=== PATIENT | female | born 1960 | race Caucasian/White ===

== ENCOUNTER 2017-02-21 16:15 | Emergency (ER) | payer MEDICAID ==
[~2017-02-21 16:15] MED LIST: NITR-48 PO; OMEP20CA5 PO
[2017-02-21] MEDS ORDERED: traMADol HCL 50 MG TAB PO ONE (19:00)
[2017-02-21 19:12] VITALS: BP 138/85
== END 2017-02-21 20:10 | disposition home or self-care (01) ==
LOC: ER 16:22
DX: M79.605 Pain in left leg (principal); M79.89 Other specified soft tissue disorders; Z85.3 Personal history of malignant neoplasm of breast; Z88.0 Allergy status to penicillin; Z77.22 Contact with and (suspected) exposure to environmental tobacco smoke (acute) (chronic); Z86.711 Personal history of pulmonary embolism; Z87.440 Personal history of urinary (tract) infections; E07.9 Disorder of thyroid, unspecified; Z86.718 Personal history of other venous thrombosis and embolism; Z88.6 Allergy status to analgesic agent
CPT/HCPCS: 93971

== ENCOUNTER 2017-10-25 08:35 | Inpatient (IN) | payer MEDICAID ==
[~2017-10-25] VITALS: Ht 162.6 cm; Wt 123.3 kg
[~2017-10-25 08:35] MED LIST changes: +DOXY-216 PO; -NITR-48 PO; -OMEP20CA5 PO; +PROM25TA5 PO
[2017-10-25 08:59] LABS: Basophils # (auto) 0.1 uL; Basophils % (auto) 1.1 % (0.0-2.0); Eosinophils # (auto) 0.1 uL; Eosinophils % (auto) 2.6 % (0.0-7.0); Hematocrit 39.5 % (36.0-46.0); Hemoglobin 13.1 g/dL (12.2-16.2); Lymphocytes # (auto) 1.2 uL; Lymphocytes % (auto) 24.4 % (10.0-50.0); Mean Corpuscular Hemoglobin 31.5 pg (28.0-32.0); Mean Corpuscular Hgb Conc. 33.2 g/dL (32.0-36.0); Mean Corpuscular Volume 94.8 fL (80.0-100.0); Monocytes # (auto) 0.3 uL; Monocytes % (auto) 6.7 % (0.0-12.0); Neutrophils # (auto) 3.1 uL; Neutrophils % (auto) 65.2 % (37.0-80.0); Platelet Count (auto) 257 10^3/uL (140-450); Red Blood Cells 4.16 10^6/uL (4.0-5.20); Red Cell Distribution Width 14.3 % (11.8-14.3); White Blood Cell 4.8 10^3/uL (4.4-10.8)
[2017-10-25 09:46] LABS: Albumin 3.9 g/dL (3.4-5.0); BUN/Creatinine Ratio 14.1; Bilirubin, Total 0.9 mg/dL (0.2-1.0); Calcium 8.9 mg/dL (8.5-10.1); Potassium 4.1 mmol/L (3.5-5.1); Total Protein 7.7 g/dL (6.4-8.2)
[2017-10-25 10:18] LABS: Urine Blood Negative /uL (Negative)
[2017-10-25 10:19] LABS: Urine Bacteria FEW /hpf (None Seen)
[2017-10-25] MEDS ORDERED: SODIUM CHLORIDE 0.9% 1,000 ML IVB ONE (10:42)
[2017-10-25] MEDS ORDERED: HYDROmorphone HCL 2 MG/ML VL IV ONE ×2 (10:45→13:15)
[2017-10-25] MEDS ORDERED: ONDANSETRON HCL 4 MG/2 ML VIAL IV ONE (10:45)
[2017-10-25 11:14] LABS: Amylase 48 U/L (25-115); Lipase 184 U/L (73-393)
[2017-10-25] MEDS ORDERED: IOHEXOL 350 MG/ML 100ML IJ ONE (14:41)
[2017-10-25] MEDS ORDERED: KETOROLAC TROMETH 30 MG/ML 1ML VIAL IV ONE (14:45)
[2017-10-25] MEDS ORDERED: ENOXAPARIN SOD 120 MG/0.8 ML SYRINGE SC ONE (14:45)
[2017-10-25] MEDS ORDERED: HYDROcodone-ACET 5/325MG TAB PO PRN (14:45)
[2017-10-25] MEDS ORDERED: ONDANSETRON HCL 4 MG/2 ML VIAL IV PRN (14:45)
[2017-10-25] MEDS: PROMETHAZINE HCL 25 MG/ML 1ML IV PRN (16:19)
[2017-10-25] MEDS: HYDROmorphone HCL 2 MG/ML VL IV PRN (20:44)
[2017-10-25 21:00] VITALS: BP 155/95
[2017-10-25] MEDS ORDERED: ENOXAPARIN SOD 120 MG/0.8 ML SYRINGE SC SCH (22:00)
[2017-10-26 00:05] VITALS: BP 155/95
[2017-10-26] MEDS: HYDROmorphone HCL 2 MG/ML VL IV PRN ×4 (00:46→15:34)
[2017-10-26] MEDS: PROMETHAZINE HCL 25 MG/ML 1ML IV PRN ×4 (00:55→15:34)
[2017-10-26 05:00] VITALS: BP 139/88
[2017-10-26] MEDS ORDERED: ENOXAPARIN SOD 120 MG/0.8 ML SYRINGE SC SCH (06:00)
[2017-10-26 08:34] VITALS: BP 125/79
[2017-10-26] MEDS: PANTOPRAZOLE 40 MG TAB PO SCH (09:55)
[2017-10-26 13:06] VITALS: BP 123/55
[2017-10-26] MEDS ORDERED: cefTRIAXone 1GM/10ml IVPUSH 10 ML IV ONE (14:15)
[2017-10-26] MEDS ORDERED: AZITHROMYCIN 250 MG TAB PO ONE (14:15)
[2017-10-26 16:32] VITALS: BP 130/67
[2017-10-26] MEDS: KETOROLAC TROMETH 30 MG/ML 1ML VIAL IV SCH ×2 (18:19→23:51)
[2017-10-26 22:00] VITALS: BP 112/69
[2017-10-27 05:00] VITALS: BP 130/70
[2017-10-27] MEDS: KETOROLAC TROMETH 30 MG/ML 1ML VIAL IV SCH ×2 (05:53→11:59)
[2017-10-27 06:27] LABS: Basophils # (auto) 0 uL; Basophils % (auto) 0.7 % (0.0-2.0); Eosinophils # (auto) 0.1 uL; Eosinophils % (auto) 3.1 % (0.0-7.0); Hematocrit 34.4 % (36.0-46.0); Hemoglobin 11.6 g/dL (12.2-16.2); Lymphocytes % (auto) 29.5 % (10.0-50.0); Mean Corpuscular Hemoglobin 32.1 pg (28.0-32.0); Mean Corpuscular Hgb Conc. 33.8 g/dL (32.0-36.0); Mean Corpuscular Volume 95.1 fL (80.0-100.0); Monocytes # (auto) 0.3 uL; Monocytes % (auto) 10.2 % (0.0-12.0); Neutrophils # (auto) 1.9 uL; Neutrophils % (auto) 56.5 % (37.0-80.0); Nucleated Red Blood Cells % 0.1 %; Platelet Count (auto) 173 10^3/uL (140-450); Red Blood Cells 3.62 10^6/uL (4.0-5.20); Red Cell Distribution Width 14.2 % (11.8-14.3); White Blood Cell 3.4 10^3/uL (4.4-10.8)
[2017-10-27 06:48] LABS: BUN/Creatinine Ratio 21.2; Potassium 3.9 mmol/L (3.5-5.1)
[2017-10-27] MEDS ORDERED: cefTRIAXone 1GM/10ml IVPUSH 10 ML IV SCH (09:00)
[2017-10-27] MEDS: PANTOPRAZOLE 40 MG TAB PO SCH (09:05)
[2017-10-27 09:25] VITALS: BP 127/68
[2017-10-27] MEDS ORDERED: AZITHROMYCIN 250 MG TAB PO SCH (10:00)
[2017-10-27 13:00] VITALS: BP 116/69
[2017-10-27 17:00] VITALS: BP 122/85
== END 2017-10-27 17:05 | disposition home or self-care (01) | DRG 392 ==
LOC: ER 08:35 → OVERFLOW 08:36 → WEST WING 20:44
PROVIDERS: ADMIT Internal Medicine; ATTEND Internal Medicine
DX: R10.9 Unspecified abdominal pain (principal); E66.01 Morbid (severe) obesity due to excess calories; Z68.42 Body mass index [BMI] 45.0-49.9, adult; Z77.22 Contact with and (suspected) exposure to environmental tobacco smoke (acute) (chronic); Z82.49 Family history of ischemic heart disease and other diseases of the circulatory system; Z85.3 Personal history of malignant neoplasm of breast; Z86.718 Personal history of other venous thrombosis and embolism; Z90.49 Acquired absence of other specified parts of digestive tract; Z90.710 Acquired absence of both cervix and uterus; Z88.0 Allergy status to penicillin; Z88.5 Allergy status to narcotic agent; Z79.899 Other long term (current) drug therapy; Z98.51 Tubal ligation status; Z90.89 Acquired absence of other organs
CPT/HCPCS: 36415; 71046; 71101; 71275; 74176; 80048; 80053; 81001; 82150; 83690; 85025; 85379; 96361; 96372; 96374; 96375; 96376; J1885; J2405

== ENCOUNTER 2018-02-18 15:11 | Observation (INO) | payer MEDICAID ==
[~2018-02-18] VITALS: Ht 162.6 cm; Wt 125.2 kg
[2018-02-18 16:12] LABS: Basophils # (auto) 0 uL; Basophils % (auto) 0.5 % (0.0-2.0); Eosinophils # (auto) 0.2 uL; Eosinophils % (auto) 3.9 % (0.0-7.0); Hematocrit 43.7 % (36.0-46.0); Hemoglobin 14.5 g/dL (12.2-16.2); Lymphocytes # (auto) 1.3 uL; Lymphocytes % (auto) 23.7 % (10.0-50.0); Mean Corpuscular Hemoglobin 32.3 pg (28.0-32.0); Mean Corpuscular Hgb Conc. 33.2 g/dL (32.0-36.0); Mean Corpuscular Volume 97.2 fL (80.0-100.0); Monocytes # (auto) 0.4 uL; Monocytes % (auto) 7.1 % (0.0-12.0); Neutrophils # (auto) 3.6 uL; Neutrophils % (auto) 64.8 % (37.0-80.0); Nucleated Red Blood Cells % 0.1 %; Platelet Count (auto) 232 10^3/uL (140-450); Red Blood Cells 4.49 10^6/uL (4.0-5.20); White Blood Cell 5.5 10^3/uL (4.4-10.8)
[2018-02-18 16:33] LABS: Albumin 4.2 g/dL (3.4-5.0); BUN/Creatinine Ratio 11.7; Bilirubin, Total 0.4 mg/dL (0.2-1.0); Calcium 9.4 mg/dL (8.5-10.1); Potassium 3.6 mmol/L (3.5-5.1); Total Protein 8.4 g/dL (6.4-8.2)
[2018-02-18] MEDS ORDERED: HYDROcodone-ACET 10/325MG TAB PO ONE (18:30)
[2018-02-18] MEDS ORDERED: NALBUPHINE HCL 10 MG/1ml INJECTION IV ONE (18:30)
[2018-02-18] MEDS ORDERED: ONDANSETRON HCL 4 MG/2 ML VIAL IV ONE ×2 (18:30→22:30)
[2018-02-18 20:53] LABS: INR 0.94 (0.9-1.15); Prothrombin Time 10.2 sec (9.37-12.3)
[2018-02-18] MEDS ORDERED: IODIXANOL 320MG/ML 100ML BTL IV ONE (23:11)
[2018-02-19] MEDS ORDERED: IOHEXOL 350 MG/ML 100ML IJ ONE (09:27)
[2018-02-19] MEDS ORDERED: IBUPROFEN 800 MG TAB PO ONE (10:00)
[2018-02-19 11:58] VITALS: BP 123/70
== END 2018-02-19 12:46 | disposition home or self-care (01) | DRG 351 ==
LOC: ER 15:18 → OVERFLOW 20:29 → ER 02-19 12:25
PROVIDERS: ADMIT Family Medicine; ATTEND Family Medicine
DX: M79.601 Pain in right arm (principal); I73.00 Raynaud's syndrome without gangrene; Z86.711 Personal history of pulmonary embolism; Z86.718 Personal history of other venous thrombosis and embolism; Z77.22 Contact with and (suspected) exposure to environmental tobacco smoke (acute) (chronic); Z82.49 Family history of ischemic heart disease and other diseases of the circulatory system; Z90.710 Acquired absence of both cervix and uterus
CPT/HCPCS: 36415; 71046; 73201; 80053; 85025; 85379; 85610; 85730; 93005; 93930; 96374; 96376; 99285; G0378; J2405; Q9967

== ENCOUNTER 2018-06-13 11:39 | Emergency (ER) | payer MEDICAID ==
[~2018-06-13] VITALS: Ht 162.6 cm; Wt 125.6 kg
[2018-06-13] MEDS ORDERED: PANTOPRAZOLE 40 MG/10 ML VIAL IV STA (12:07)
[2018-06-13] MEDS ORDERED: SODIUM CHLORIDE 0.9% 500 ML IVB ONE (12:07)
[2018-06-13] MEDS ORDERED: ONDANSETRON HCL 4 MG/2 ML VIAL IV ONE (12:15)
[2018-06-13] MEDS ORDERED: HYDROmorphone HCL 2 MG/ML VL IV ONE (12:15)
[2018-06-13 12:57] LABS: Basophils # (auto) 0 uL; Basophils % (auto) 0.8 % (0.0-2.0); Eosinophils # (auto) 0.2 uL; Eosinophils % (auto) 3.2 % (0.0-7.0); Hematocrit 41.9 % (36.0-46.0); Hemoglobin 14.3 g/dL (12.2-16.2); Lymphocytes # (auto) 1.1 uL; Lymphocytes % (auto) 18.5 % (10.0-50.0); Mean Corpuscular Hemoglobin 33.3 pg (28.0-32.0); Monocytes # (auto) 0.4 uL; Monocytes % (auto) 6.6 % (0.0-12.0); Neutrophils # (auto) 4.2 uL; Neutrophils % (auto) 70.9 % (37.0-80.0); Nucleated Red Blood Cells % 0.1 %; Platelet Count (auto) 242 10^3/uL (140-450); Red Blood Cells 4.28 10^6/uL (4.0-5.20); Red Cell Distribution Width 14.8 % (11.8-14.3); White Blood Cell 5.9 10^3/uL (4.4-10.8)
[2018-06-13 13:01] LABS: Urine Bacteria NONE SEEN /hpf (None Seen); Urine Blood Negative /uL (Negative); Urine Mucus FEW (None Seen); Urine Specific Gravity 1.012 (1.001-1.035); Urine WBC 2 /hpf (0 - 5)
[2018-06-13 13:18] LABS: Albumin 4.1 g/dL (3.4-5.0); BUN/Creatinine Ratio 15.4; Bilirubin, Total 0.9 mg/dL (0.2-1.0); Calcium 8.9 mg/dL (8.5-10.1); Potassium 4.1 mmol/L (3.5-5.1); Total Protein 8.2 g/dL (6.4-8.2)
[2018-06-13 13:21] LABS: Amylase 46 U/L (25-115); Lipase 170 U/L (73-393); Magnesium 2.4 mg/dL (1.6-2.6)
[2018-06-13 19:48] VITALS: BP 129/95
== END 2018-06-13 20:28 | disposition home or self-care (01) ==
LOC: ER 11:39
DX: R10.13 Epigastric pain (principal); R11.2 Nausea with vomiting, unspecified; E07.9 Disorder of thyroid, unspecified; Z88.0 Allergy status to penicillin; Z88.5 Allergy status to narcotic agent; Z86.711 Personal history of pulmonary embolism; Z77.22 Contact with and (suspected) exposure to environmental tobacco smoke (acute) (chronic)
CPT/HCPCS: 36415; 74176; 80053; 81001; 82150; 83690; 83735; 84484; 85025; 93005; 94761; 96361; 96374; 96375; 99285; C9113; J1170; J2405; J7040

== ENCOUNTER 2018-11-28 09:40 | Emergency (ER) | payer MEDICAID ==
[~2018-11-28] VITALS: Ht 162.6 cm; Wt 120.2 kg
[2018-11-28 10:13] LABS: Urine WBC None Seen /hpf (0 - 5)
[2018-11-28 10:21] LABS: Basophils # (auto) 0 uL; Basophils % (auto) 1.2 % (0.0-2.0); Eosinophils # (auto) 0.1 uL; Eosinophils % (auto) 3.5 % (0.0-7.0); Hemoglobin 14.8 g/dL (12.2-16.2); Lymphocytes # (auto) 1.2 uL; Mean Corpuscular Hemoglobin 32.6 pg (28.0-32.0); Mean Corpuscular Hgb Conc. 34.3 g/dL (32.0-36.0); Mean Corpuscular Volume 94.9 fL (80.0-100.0); Monocytes # (auto) 0.3 uL; Monocytes % (auto) 6.3 % (0.0-12.0); Neutrophils # (auto) 2.4 uL; Platelet Count (auto) 216 10^3/uL (140-450); Red Blood Cells 4.53 10^6/uL (4.0-5.20); Red Cell Distribution Width 13.9 % (11.8-14.3); White Blood Cell 4.1 10^3/uL (4.4-10.8)
[2018-11-28 10:28] LABS: Urine Bacteria NONE SEEN /hpf (None Seen); Urine Blood Negative /uL (Negative); Urine Specific Gravity 1.012 (1.001-1.035)
[2018-11-28 10:39] LABS: Albumin 3.9 g/dL (3.4-5.0); BUN/Creatinine Ratio 17.3; Calcium 8.5 mg/dL (8.5-10.1)
[2018-11-28 10:41] LABS: Bilirubin, Total 0.7 mg/dL (0.2-1.0); Total Protein 7.9 g/dL (6.4-8.2)
[2018-11-28 13:54] VITALS: BP 150/80
== END 2018-11-28 13:57 | disposition home or self-care (01) ==
LOC: ER 09:40
DX: M79.604 Pain in right leg (principal); M79.10 Myalgia, unspecified site; Z87.440 Personal history of urinary (tract) infections; Z86.711 Personal history of pulmonary embolism; Z86.73 Personal history of transient ischemic attack (TIA), and cerebral infarction without residual deficits; Z88.0 Allergy status to penicillin; Z88.5 Allergy status to narcotic agent
CPT/HCPCS: 36415; 71046; 80053; 81001; 85025; 93005; 93971

== ENCOUNTER 2019-09-20 15:12 | Emergency (ER) | payer MEDICAID ==
[~2019-09-20] VITALS: Ht 162.6 cm; Wt 113.4 kg
[2019-09-20 16:09] LABS: Basophils # (auto) 0 uL; Basophils % (auto) 0.9 % (0.0-2.0); Eosinophils # (auto) 0.2 uL; Hematocrit 40.7 % (36.0-46.0); Hemoglobin 13.7 g/dL (12.2-16.2); Lymphocytes # (auto) 1.2 uL; Lymphocytes % (auto) 23.8 % (10.0-50.0); Mean Corpuscular Hemoglobin 32.5 pg (28.0-32.0); Mean Corpuscular Hgb Conc. 33.7 g/dL (32.0-36.0); Mean Corpuscular Volume 96.6 fL (80.0-100.0); Monocytes # (auto) 0.4 uL; Neutrophils # (auto) 3.2 uL; Neutrophils % (auto) 64.3 % (37.0-80.0); Platelet Count (auto) 211 10^3/uL (140-450); Red Blood Cells 4.21 10^6/uL (4.0-5.20); Red Cell Distribution Width 13.9 % (11.8-14.3)
[2019-09-20 16:19] LABS: Alanine Aminotransferase 27 U/L (13-56); Albumin 3.7 g/dL (3.4-5.0); Anion Gap 8 (5-15); Aspartate Aminotransferase 20 U/L (15-37); BUN/Creatinine Ratio 20.6; Blood Urea Nitrogen 22 mg/dL (7-18); Calcium 8.5 mg/dL (8.5-10.1); Carbon Dioxide 26 mmol/L (21-32); Chloride 107 mmol/L (98-107); GFR African American 68 mL/min; GFR Non-African American 56 mL/min; Glucose 94 mg/dL (74-106); Potassium 3.4 mmol/L (3.5-5.1); Sodium 141 mmol/L (136-145)
[2019-09-20 16:23] LABS: Alkaline Phosphatase 88 U/L (45-117); Bilirubin, Total 0.5 mg/dL (0.2-1.0); Total Protein 7.6 g/dL (6.4-8.2)
[2019-09-20 20:31] LABS: INR 0.98 (0.9-1.15); Partial Thromboplastin Time 25.2 sec (23.64-32.05)
[2019-09-20 21:08] LABS: Urine Bacteria NONE SEEN /hpf (None Seen); Urine Blood Negative /uL (Negative); Urine Mucus FEW (None Seen); Urine Specific Gravity 1.014 (1.001-1.035); Urine WBC 58 /hpf (0 - 5)
[2019-09-20] MEDS ORDERED: MORPHINE SULFATE 4 MG/ML SYR/VIAL IV ONE (21:45)
[2019-09-20] MEDS ORDERED: ONDANSETRON HCL 4 MG/2 ML VIAL IV ONE (21:45)
[2019-09-20] MEDS ORDERED: HYDROmorphone HCL 2 MG/ML VL IV ONE (22:15)
[2019-09-20 23:17] VITALS: BP 133/77
== END 2019-09-20 23:30 | disposition home or self-care (01) ==
LOC: ER 15:37
DX: F41.9 Anxiety disorder, unspecified (principal); N39.0 Urinary tract infection, site not specified; E07.9 Disorder of thyroid, unspecified
CPT/HCPCS: 36415; 71046; 80053; 81001; 83880; 84443; 84484; 85025; 85379; 85610; 85730; 93971; 96374; 96375; 99284; J1170; J2270; J2405

== ENCOUNTER 2020-05-31 13:24 | Inpatient (IN) | payer MEDICAID ==
[~2020-05-31] VITALS: Ht 162.6 cm; Wt 116.7 kg
[2020-05-31 13:52] LABS: Basophils # (auto) 0.1 10 ^3/uL (0-0.2); Basophils % (auto) 1.3 % (0.0-2.0); Eosinophils # (auto) 0.1 10 ^3/uL (0-0.8); Eosinophils % (auto) 2.2 % (0.0-7.0); Hematocrit 38.5 % (36.0-46.0); Hemoglobin 12.7 g/dL (12.2-16.2); Lymphocytes # (auto) 1.3 10 ^3/uL (0.4-5.4); Lymphocytes % (auto) 29.7 % (10.0-50.0); Mean Corpuscular Hemoglobin 31.8 pg (28.0-32.0); Mean Corpuscular Hgb Conc. 33.1 g/dL (32.0-36.0); Mean Corpuscular Volume 96.1 fL (80.0-100.0); Monocytes # (auto) 0.2 10 ^3/uL (0-1.3); Monocytes % (auto) 5.5 % (0.0-12.0); Neutrophils # (auto) 2.7 10 ^3/uL (1.6-8.6); Neutrophils % (auto) 61.3 % (37.0-80.0); Nucleated Red Blood Cells % 0.1 %; Platelet Count (auto) 209 10^3/uL (140-450); Red Blood Cells 4.01 10^6/uL (4.0-5.20); Red Cell Distribution Width 13.8 % (11.8-14.3); White Blood Cell 4.4 10^3/uL (4.4-10.8)
[2020-05-31 14:06] LABS: Albumin 3.6 g/dL (3.4-5.0); Anion Gap 4 (5-15); Blood Urea Nitrogen 13 mg/dL (7-18); Calcium 8.7 mg/dL (8.5-10.1); Carbon Dioxide 25 mmol/L (21-32); Chloride 110 mmol/L (98-107); Glucose 89 mg/dL (74-106); Potassium 3.7 mmol/L (3.5-5.1); Sodium 139 mmol/L (136-145)
[2020-05-31 14:08] LABS: Alanine Aminotransferase 22 U/L (13-56); Aspartate Aminotransferase 14 U/L (15-37); BUN/Creatinine Ratio 13.1; GFR African American 74 mL/min; GFR Non-African American 61 mL/min
[2020-05-31 14:12] LABS: Alkaline Phosphatase 68 U/L (45-117); Bilirubin, Total 0.9 mg/dL (0.2-1.0); Total Protein 7.2 g/dL (6.4-8.2)
[2020-05-31] MEDS ORDERED: SODIUM CHLORIDE 0.9% 1,000 ML IV ONE (15:28)
[2020-05-31] MEDS ORDERED: ASPirin 81 mg TAB PO ONE (15:30)
[2020-05-31 17:02] LABS: INR 0.97 (0.9-1.15); Partial Thromboplastin Time 25.9 sec (23.0-31.2)
[2020-05-31] MEDS ORDERED: IOHEXOL 350 MG/ML 100ML IJ ONE ×2 (19:08→22:08)
[2020-05-31] MEDS ORDERED: NITROGLYCERIN 0.4 MG SL TAB SL PRN (21:00)
[2020-05-31] MEDS: APIXABAN 5 MG TAB PO SCH (22:11)
[2020-05-31 22:16] LABS: Urine Bacteria FEW /hpf (None Seen); Urine Blood Negative /uL (Negative); Urine Mucus FEW (None Seen); Urine Specific Gravity 1.015 (1.001-1.035); Urine WBC 6 /hpf (0 - 5)
--- NOTE | 2020-05-31 22:33 | NUR ---
Telemetry admit from ER SARDISMILAGROS admitted to Telemetry unit after SBAR received. Patient oriented to Naveen Lehman, primary RN, unit, room, bed, and unit policies regarding patient care and visiting hours. Patient now on continuous telemetry monitoring, tele box # 34 and telemetry reading on arrival to unit is Sinus jia. Patient placed on bedside oxygen at 1.5 L/min, weighed by bedscale and encouraged to call if they need something. Pain management discussed with patient. All questions and concerns addressed, patient verbalized understanding.
[2020-05-31 23:11] VITALS: BP 145/65
[2020-05-31] MEDS: HYDROcodone-ACET 5/325MG TAB PO PRN (23:23)
[2020-05-31 23:43] VITALS: BP 145/65
[2020-06-01] MEDS ORDERED: ESOM40CA39 PO (00:07)
[2020-06-01] MEDS ORDERED: LEV50T PO (00:07)
[2020-06-01] MEDS ORDERED: TRAM50TA2 PO (00:07)
[2020-06-01] MEDS ORDERED: ATOR20TA PO (00:07)
[2020-06-01] MEDS: ONDANSETRON HCL 4 MG/2 ML VIAL IV PRN (04:53)
[2020-06-01] MEDS: HYDROcodone-ACET 5/325MG TAB PO PRN ×2 (04:53→11:38)
[2020-06-01 05:00] VITALS: BP 115/68
--- NOTE | 2020-06-01 07:30 | NUR ---
Opening Shift Note Assumed care of patient, awake and alert. No S/S of distress/SOB or pain reported at this time. Instructed on POC and to call for assist PRN, call light within reach, bed alarm activated, will continue to monitor for changes Q1hr and PRN.
[2020-06-01 08:00] VITALS: BP 100/57
[2020-06-01 09:00] VITALS: BP 100/51
[2020-06-01] MEDS: APIXABAN 5 MG TAB PO SCH ×2 (09:41→22:03)
[2020-06-01 13:00] VITALS: BP_SYST 114; BP_SYST 125; BP_DIAS 68; BP_DIAS 71
[2020-06-01] MEDS ORDERED: LORazepam 0.5 MG TAB PO PRN (16:00)
[2020-06-01 17:00] VITALS: BP 114/68
--- NOTE | 2020-06-01 19:30 | NUR ---
Opening shift note Assumed care of patient from day RNCecy. Patient sitting up resting, A&Ox4, respirations even and non-labored with no s/s of distress at this time. Discussed patients POC and requested that the patient call for assistance before walking to the bathroom due to her medications and possible weakness. The patient verbalized understanding. Assisted patient to the restroom and back into bed without any complications. Bed alarm set at this time. Bed in the lowest locked position with 2 side rails up, call light within reach. will continue to monitor.
[2020-06-01 22:00] VITALS: BP 123/69
--- NOTE | 2020-06-02 01:02 | NUR ---
Rounding Patient sleeping. Respirations even and non-labored with no s/s of distress. Bed alarm on. Will continue to monitor.
[2020-06-02] MEDS: HYDROcodone-ACET 5/325MG TAB PO PRN ×2 (02:46→21:04)
[2020-06-02] MEDS: ONDANSETRON HCL 4 MG/2 ML VIAL IV PRN ×2 (02:46→21:04)
--- NOTE | 2020-06-02 02:55 | NUR ---
Pain Patient requesting pain medication for 5/10 pain and a headache. Administered [place] per EMAR. Will continue to monitor.
--- NOTE | 2020-06-02 03:30 | NUR ---
Pain reassessed Patient sleeping, respirations even and non-labored with no s/s of distress. will continue to monitor.
[2020-06-02] MEDS: LEVOTHYROXINE SODIUM 50 MCG TAB PO SCH (05:37)
--- NOTE | 2020-06-02 05:37 | NUR ---
Contacted by woodworking shop laborer Unable to do lab draw on the patient at this time. Will return to complete the draw at a later time.
[2020-06-02 05:42] VITALS: BP 123/69
--- NOTE | 2020-06-02 06:50 | NUR ---
Patient resting Respirations even and non-labored with no s/s of distress at this time.
[2020-06-02 08:00] VITALS: BP 125/74
[2020-06-02 08:53] VITALS: BP 125/74
--- NOTE | 2020-06-02 09:36 | NUR ---
AT BEDSIDE DR FRANCISCO AT BEDSIDE DISCUSSING POC, CONT CARE
[2020-06-02] MEDS: APIXABAN 5 MG TAB PO SCH (09:52)
[2020-06-02] MEDS: PANTOPRAZOLE 40 MG TAB PO SCH (09:52)
[2020-06-02 11:56] LABS: Anion Gap 5 (5-15); Blood Urea Nitrogen 12 mg/dL (7-18); Calcium 8.6 mg/dL (8.5-10.1); Carbon Dioxide 27 mmol/L (21-32); Chloride 107 mmol/L (98-107); Glucose 96 mg/dL (74-106); Potassium 4.3 mmol/L (3.5-5.1); Sodium 139 mmol/L (136-145)
[2020-06-02 12:00] LABS: Cholesterol 141 mg/dL (< 200); GFR African American 102 mL/min; GFR Non-African American 84 mL/min; HDL Cholesterol 52 mg/dL (40-59); LDL Cholesterol 78 mg/dL (< 100); Triglycerides 99 mg/dL (< 150)
[2020-06-02 12:51] VITALS: BP 114/64
--- NOTE | 2020-06-02 13:12 | NUR ---
[facility] SOCIAL SERVICE ORDER PT DOES NOT QUALIFY FOR HOME HEALTH, PT AND DR FRANCISCO AWARE, PT STATES " I HAVE MY DAUGHTER AT HOME", CONT CARE
[2020-06-02 16:52] VITALS: BP 107/58
--- NOTE | 2020-06-02 19:20 | NUR ---
Opening shift note Assumed care of patient who is A&Ox4, respirations even and non-labored with no s/s of distress at this time. Discussed POC and the importance of calling for assistance to the restroom with patient who verbalized understanding. Bed in lowest locked position with 2 side rails up. Call light within reach. Will continue to monitor.
[2020-06-02] MEDS ORDERED: LORazepam 2MG/ML-1ML VIAL IV PRN (20:00)
--- NOTE | 2020-06-02 21:10 | NUR ---
Pain Patient c/o 04/18 right breast pain. Administered [place] per EMAR. will continue to monitor.
--- NOTE | 2020-06-02 21:40 | NUR ---
Pain reassessed Patient sleeping with respirations even and non-labored and no s/s of distress at this time. Will continue to monitor.
[2020-06-02 22:00] VITALS: BP 124/73
[2020-06-03] VITALS (7 sets, daily range): BP systolic 103–120; BP diastolic 61–80
[2020-06-03] MEDS: HYDROcodone-ACET 5/325MG TAB PO PRN (03:40)
--- NOTE | 2020-06-03 03:40 | NUR ---
Pain Patient c/o right upper breast pain. Administered [place] per EMAR. Will continue to monitor.
[2020-06-03] MEDS: ONDANSETRON HCL 4 MG/2 ML VIAL IV PRN (03:41)
--- NOTE | 2020-06-03 04:52 | NUR ---
Orthostatic Vitals Supine: 120/66, HR 60 Sittin/77, HR 68 Stand: 120/79, HR 66 Patient tolerated well
[2020-06-03] MEDS: LEVOTHYROXINE SODIUM 50 MCG TAB PO SCH (05:22)
--- NOTE | 2020-06-03 06:55 | NUR ---
Rounding Patient sleeping, respirations even and non-labored with no s/s of distress at this time.
--- NOTE | 2020-06-03 07:30 | NUR ---
Opening Shift Note Assumed care of patient, awake and alert X4. No S/S of distress/SOB or pain reported at this time. Instructed on POC and to call for assist PRN, call light within reach, bed alarm activated, will continue to monitor for changes Q1hr and PRN.
--- NOTE | 2020-06-03 09:06 | NUR ---
AT BEDSIDE DR FRANCISCO AT BEDSIDE, DISCUSSING POC AND POSSIBLE DISCHARGE AFTER MRI RESULTS, CONT CARE
--- NOTE | 2020-06-03 09:46 | NUR ---
PT OFF UNIT TAKEN TO MRI VIA WHEELCHAIR, NO DISTRESS NOTED AT THIS TIME
--- NOTE | 2020-06-03 10:15 | NUR ---
PT BACK FROM MRI NO DISTRESS NOTED AT THIS TIME
[2020-06-03] MEDS: PANTOPRAZOLE 40 MG TAB PO SCH (11:10)
--- NOTE | 2020-06-03 16:30 | NUR ---
NEURO PAGED FOR DISCHARGE CLEARANCE
--- NOTE | 2020-06-03 17:20 | NUR ---
NEURO PAGED FOR DISCHARGE CLEARANCE
--- NOTE | 2020-06-03 18:46 | NUR ---
DR CLARK PAGED RE: NEURO CLEARANCE
--- NOTE | 2020-06-03 18:59 | NUR ---
CLEARED FOR DISCHARGE FROM NEURO SPOKE WITH DR CLARK HERE AT NURSING STATION, CLEARED PT FOR DISCHARGE
--- NOTE | 2020-06-03 20:29 | NUR ---
open note assumed care of pt, upon entering room pt awake and alert, on room air with no s/s distress noted or expressed. pt made aware of dc and contacted ride for pickup. pt given dc info and paperwork, pt has all belongings, and all concerns regarding dc addressed at this time. pt iv dc'd, tolerated well, catheter intact, and tele monitor removed and tubed back to technical writer and editor. pt ride picked up pt without issue. pt encouraged to call or return as needed.
[2020-06-07] MEDS ORDERED: APIXABAN 5 MG TAB PO SCH (22:00)
== END 2020-06-03 20:00 | disposition home or self-care (01) | DRG 203 ==
LOC: ER 13:24 → TELE 13:25 → TELE-CENTR 22:34
PROVIDERS: ADMIT Hospitalist; ATTEND Internal Medicine
DX: R07.89 Other chest pain (principal); E66.01 Morbid (severe) obesity due to excess calories; K21.9 Gastro-esophageal reflux disease without esophagitis; E03.9 Hypothyroidism, unspecified; R22.2 Localized swelling, mass and lump, trunk; Z88.5 Allergy status to narcotic agent; Z88.0 Allergy status to penicillin; Z79.899 Other long term (current) drug therapy; Z82.49 Family history of ischemic heart disease and other diseases of the circulatory system; Z83.3 Family history of diabetes mellitus; Z85.3 Personal history of malignant neoplasm of breast; Z86.711 Personal history of pulmonary embolism; Z87.440 Personal history of urinary (tract) infections; Z90.49 Acquired absence of other specified parts of digestive tract; Z90.710 Acquired absence of both cervix and uterus; Z86.718 Personal history of other venous thrombosis and embolism; Z68.39 Body mass index [BMI] 39.0-39.9, adult
CPT/HCPCS: 36415; 70450; 70551; 71045; 71275; 80048; 80053; 80061; 81001; 82962; 83735; 83880; 84443; 84484; 85025; 85379; 85610; 85730; 87081; 87086; 93306; 93886; 93970; 96360; 97110; 97116; 97163; 97530; G0378; J2405

== ENCOUNTER 2020-07-15 13:22 | Emergency (ER) | payer MEDICAID ==
[~2020-07-15] VITALS: Ht 162.6 cm; Wt 113.4 kg
[~2020-07-15 13:22] MED LIST changes: +ATOR20TA PO; -DOXY-216 PO; +ESOM40CA39 PO; +LEV50T PO; -PROM25TA5 PO; +TRAM50TA2 PO
[2020-07-15] MEDS ORDERED: SODIUM CHLORIDE 0.9% 1,000 ML IVB ONE (14:00)
[2020-07-15 14:03] LABS: Urine Bacteria FEW /hpf (None Seen); Urine Blood Negative /uL (Negative); Urine Mucus FEW (None Seen); Urine Specific Gravity 1.013 (1.001-1.035); Urine WBC 64 /hpf (0 - 5)
[2020-07-15 14:15] LABS: Basophils # (auto) 0 10 ^3/uL (0-0.2); Basophils % (auto) 0.8 % (0.0-2.0); Eosinophils # (auto) 0.1 10 ^3/uL (0-0.8); Eosinophils % (auto) 3.1 % (0.0-7.0); Hematocrit 38.6 % (36.0-46.0); Hemoglobin 13.2 g/dL (12.2-16.2); Lymphocytes # (auto) 1.2 10 ^3/uL (0.4-5.4); Lymphocytes % (auto) 27.1 % (10.0-50.0); Mean Corpuscular Hemoglobin 33.3 pg (28.0-32.0); Mean Corpuscular Hgb Conc. 34.1 g/dL (32.0-36.0); Mean Corpuscular Volume 97.5 fL (80.0-100.0); Monocytes # (auto) 0.3 10 ^3/uL (0-1.3); Monocytes % (auto) 6.1 % (0.0-12.0); Neutrophils # (auto) 2.7 10 ^3/uL (1.6-8.6); Neutrophils % (auto) 62.9 % (37.0-80.0); Platelet Count (auto) 199 10^3/uL (140-450); Red Blood Cells 3.96 10^6/uL (4.0-5.20); Red Cell Distribution Width 15.2 % (11.8-14.3); White Blood Cell 4.3 10^3/uL (4.4-10.8)
[2020-07-15 14:41] LABS: Albumin 3.6 g/dL (3.4-5.0); Anion Gap 6 (5-15); Blood Urea Nitrogen 15 mg/dL (7-18); Calcium 8.8 mg/dL (8.5-10.1); Carbon Dioxide 27 mmol/L (21-32); Chloride 108 mmol/L (98-107); Glucose 87 mg/dL (74-106); Lipase 120 U/L (73-393); Potassium 3.8 mmol/L (3.5-5.1); Sodium 141 mmol/L (136-145)
[2020-07-15 14:43] LABS: Alanine Aminotransferase 24 U/L (13-56); Aspartate Aminotransferase 19 U/L (15-37); BUN/Creatinine Ratio 16.3; GFR African American 80 mL/min; GFR Non-African American 66 mL/min
[2020-07-15 14:48] LABS: Alkaline Phosphatase 70 U/L (45-117); Bilirubin, Total 0.6 mg/dL (0.2-1.0); Total Protein 7.1 g/dL (6.4-8.2)
[2020-07-15 14:52] VITALS: BP 135/78
[2020-07-15] MEDS ORDERED: cefTRIAXone 1GM/50ML D5W 50 ML IV ONE (15:15)
[2020-07-15] MEDS ORDERED: ONDANSETRON HCL 4 MG/2 ML VIAL IV ONE (15:45)
[2020-07-15] MEDS ORDERED: HYDROcodone-ACET 5/325MG TAB PO ONE (15:45)
== END 2020-07-15 16:21 | disposition home or self-care (01) ==
LOC: ER 13:22
DX: R10.12 Left upper quadrant pain (principal); N39.0 Urinary tract infection, site not specified; Z79.899 Other long term (current) drug therapy; Z88.0 Allergy status to penicillin; Z88.5 Allergy status to narcotic agent; Z90.49 Acquired absence of other specified parts of digestive tract; Z90.710 Acquired absence of both cervix and uterus
CPT/HCPCS: 36415; 74176; 80053; 81001; 83690; 84484; 85025; 93005; 96361; 96365; 96375; 99285; J0696; J2405; J7030

== ENCOUNTER 2020-08-07 15:07 | Inpatient (IN) | payer MEDICAID ==
[~2020-08-07] VITALS: Ht 162.6 cm; Wt 119.6 kg
[2020-08-07] MEDS ORDERED: ASPirin 81 mg TAB PO ONE (15:30)
[2020-08-07] MEDS ORDERED: MORPHINE SULFATE 4 MG/ML SYR/VIAL IV ONE (15:30)
[2020-08-07] MEDS ORDERED: ONDANSETRON HCL 4 MG/2 ML VIAL IV ONE (15:30)
[2020-08-07 15:40] LABS: Basophils # (auto) 0.1 10 ^3/uL (0-0.2); Basophils % (auto) 1.1 % (0.0-2.0); Eosinophils # (auto) 0.4 10 ^3/uL (0-0.8); Eosinophils % (auto) 7.4 % (0.0-7.0); Hematocrit 38.7 % (36.0-46.0); Hemoglobin 13.3 g/dL (12.2-16.2); Lymphocytes # (auto) 1.1 10 ^3/uL (0.4-5.4); Lymphocytes % (auto) 20.7 % (10.0-50.0); Mean Corpuscular Hemoglobin 33.5 pg (28.0-32.0); Mean Corpuscular Hgb Conc. 34.3 g/dL (32.0-36.0); Mean Corpuscular Volume 97.5 fL (80.0-100.0); Monocytes # (auto) 0.4 10 ^3/uL (0-1.3); Monocytes % (auto) 6.7 % (0.0-12.0); Neutrophils # (auto) 3.5 10 ^3/uL (1.6-8.6); Neutrophils % (auto) 64.1 % (37.0-80.0); Platelet Count (auto) 217 10^3/uL (140-450); Red Blood Cells 3.97 10^6/uL (4.0-5.20); Red Cell Distribution Width 15.2 % (11.8-14.3); White Blood Cell 5.4 10^3/uL (4.4-10.8)
[2020-08-07] MEDS ORDERED: NITROGLYCERIN 0.4 MG SL TAB SL ONE (15:45)
[2020-08-07 16:00] LABS: Albumin 3.9 g/dL (3.4-5.0); Anion Gap 6 (5-15); Blood Urea Nitrogen 21 mg/dL (7-18); Calcium 8.7 mg/dL (8.5-10.1); Carbon Dioxide 23 mmol/L (21-32); Chloride 112 mmol/L (98-107); Glucose 88 mg/dL (74-106); Sodium 141 mmol/L (136-145)
[2020-08-07 16:06] LABS: Alanine Aminotransferase 28 U/L (13-56); Alkaline Phosphatase 77 U/L (45-117); Aspartate Aminotransferase 24 U/L (15-37); Bilirubin, Total 0.6 mg/dL (0.2-1.0); GFR African American 73 mL/min; GFR Non-African American 60 mL/min; Total Protein 7.3 g/dL (6.4-8.2)
[2020-08-07] MEDS ORDERED: KETOROLAC TROMETH 30 MG/ML 1ML VIAL IV ONE (16:15)
[2020-08-07] MEDS ORDERED: HYDROcodone-ACET 10/325MG TAB PO ONE (17:45)
[2020-08-07] MEDS ORDERED: TEMAZEPAM 15 MG CAP PO PRN (18:00)
[2020-08-07] MEDS ORDERED: LACTULOSE 20Gm/30ML SOLN PO PRN (18:00)
[2020-08-07] MEDS ORDERED: NITROGLYCERIN 0.4 MG SL TAB SL PRN (18:00)
[2020-08-07] MEDS ORDERED: ACETAMINOPHEN 500 MG TAB PO PRN (18:00)
[2020-08-07] MEDS: SODIUM CHLORIDE 0.9% 1,000 ML IV SCH (18:30)
--- NOTE | 2020-08-07 19:57 | NUR ---
ADMISSION NOTE Pt admitted to room 215-A in stable cond. Pt oriented to room and procedures and POC discussed with pt. Pt verbalizes understanding. Pt does c/o CP and describes her CP as a right sided breast/axillary pain that radiates to the left side of her chest. Pt reports that she has been taking Tramadol 100mg Q 4-6 hrs for the pain at home. Pt further reports that she has hx of breast CA with lumpectomy and that she has been trying to get a new mammogram or US of the right breast and fears that breast CA might be back. attempted to palpate right breast area that pt points to but unable to palpate very well r/t it being too painful for the pt. Bed is low, wheels are locked, and call light is with in reach. Side rails up x2 for pt safety.
[2020-08-07] MEDS: PROMETHAZINE HCL 25 MG/ML 1ML IV PRN (21:26)
[2020-08-07] MEDS: ENOXAPARIN SOD 120 MG/0.8 ML SYRINGE SC SCH (21:26)
--- NOTE | 2020-08-07 21:26 | NUR ---
Pt is c/o nausea and pain and medicated per MD orders at this time.
[2020-08-07] MEDS: traMADol HCL 50 MG TAB PO PRN (21:27)
[2020-08-07 22:00] VITALS: BP 116/80
[2020-08-07] MEDS ORDERED: ATORVASTATIN 20 MG TAB PO SCH (22:00)
[2020-08-08 05:00] VITALS: BP 110/60
[2020-08-08 08:00] VITALS: BP 141/70
--- NOTE | 2020-08-08 08:15 | NUR ---
Opening Shift Note Assumed care of patient, awake and alertx4. No S/S of distress/SOB or pain. Instructed on POC and to call for assistance PRN. Bed at lowest locked position and valentine light within reach. Will continue to monitor for changes Q1hr and PRN.
[2020-08-08] MEDS: SODIUM CHLORIDE 0.9% 1,000 ML IV SCH (08:53)
[2020-08-08] MEDS: PROMETHAZINE HCL 25 MG/ML 1ML IV PRN ×2 (08:53→21:20)
[2020-08-08] MEDS: ENOXAPARIN SOD 120 MG/0.8 ML SYRINGE SC SCH (08:53)
[2020-08-08] MEDS: traMADol HCL 50 MG TAB PO PRN ×2 (08:54→15:35)
[2020-08-08 09:00] VITALS: BP 141/70
[2020-08-08] MEDS ORDERED: NITROGLYCERIN 0.2MG/HR TOPICAL PATCH TD SCH (10:00)
[2020-08-08] MEDS ORDERED: ASPirin 81 mg TAB PO SCH (10:00)
[2020-08-08] MEDS ORDERED: IOHEXOL 350 MG/ML 100ML IJ ONE (11:54)
--- NOTE | 2020-08-08 12:03 | NUR ---
Rounds Patient taken down to radiology for test.
[2020-08-08 12:23] VITALS: BP 132/72
[2020-08-08 16:20] VITALS: BP 109/65
--- NOTE | 2020-08-08 18:46 | NUR ---
Closing note Patient is comfortably resting in bed on room air, respirations even and unlabored. No c/o pain, no s/s of distress noted/stated. Bed at lowest locked position and call light within reach. Will endorse care to NOC RN.
--- NOTE | 2020-08-08 19:36 | NUR ---
Opening Shift Note Received report and assumed care of patient. Patient is awake and alert. No signs or symptoms of distress noted. Instructed patient on plan of care and to call for assistance as needed. Will continue to monitor.
[2020-08-08] MEDS: HYDROmorphone HCL 2 MG/ML VL IV PRN (21:20)
--- NOTE | 2020-08-08 21:20 | NUR ---
Pain Medication Administration Patient complaining of headache and right breast pain 10/10. Will administer pain medication per MD order. Will reassess pain level and will continue to monitor.
--- NOTE | 2020-08-08 21:50 | NUR ---
Pain Level Reassessment Patient asleep for pain level reassessment. No signs or symptoms of distress noted. Will continue to monitor.
[2020-08-08 21:56] LABS: Urine Bacteria NONE SEEN /hpf (None Seen); Urine Blood Negative /uL (Negative); Urine Specific Gravity 1.025 (1.001-1.035); Urine WBC 1 /hpf (0 - 5)
[2020-08-08 22:35] VITALS: BP 120/75
[2020-08-09 05:34] LABS: Basophils # (auto) 0 10 ^3/uL (0-0.2); Basophils % (auto) 0.9 % (0.0-2.0); Eosinophils # (auto) 0.5 10 ^3/uL (0-0.8); Eosinophils % (auto) 9.5 % (0.0-7.0); Hematocrit 38.1 % (36.0-46.0); Hemoglobin 12.9 g/dL (12.2-16.2); Lymphocytes # (auto) 1.1 10 ^3/uL (0.4-5.4); Lymphocytes % (auto) 22.2 % (10.0-50.0); Mean Corpuscular Hemoglobin 33.3 pg (28.0-32.0); Mean Corpuscular Hgb Conc. 33.9 g/dL (32.0-36.0); Mean Corpuscular Volume 98.2 fL (80.0-100.0); Monocytes # (auto) 0.3 10 ^3/uL (0-1.3); Monocytes % (auto) 7.2 % (0.0-12.0); Neutrophils # (auto) 2.9 10 ^3/uL (1.6-8.6); Neutrophils % (auto) 60.2 % (37.0-80.0); Nucleated Red Blood Cells % 0.1 %; Platelet Count (auto) 189 10^3/uL (140-450); Red Blood Cells 3.88 10^6/uL (4.0-5.20); Red Cell Distribution Width 15.2 % (11.8-14.3); White Blood Cell 4.9 10^3/uL (4.4-10.8)
[2020-08-09 05:41] VITALS: BP 105/70
[2020-08-09 06:00] LABS: BUN/Creatinine Ratio 21.6; Calcium 8.7 mg/dL (8.5-10.1)
[2020-08-09 08:00] VITALS: BP 110/52
--- NOTE | 2020-08-09 08:42 | NUR ---
Pain Medication Administration Patient complaining of right breast pain 10/10. Will administer pain medication per MD order. Will continue to monitor PRN.
[2020-08-09] MEDS: ENOXAPARIN SOD 40 MG/0.4 ML SYRINGE SC SCH (08:47)
[2020-08-09] MEDS: PROMETHAZINE HCL 25 MG/ML 1ML IV PRN ×2 (08:47→17:51)
[2020-08-09] MEDS: HYDROmorphone HCL 2 MG/ML VL IV PRN ×2 (08:48→21:16)
[2020-08-09 09:00] VITALS: BP 110/52
[2020-08-09 13:00] VITALS: BP 104/72
[2020-08-09 16:50] VITALS: BP 100/55
[2020-08-09] MEDS: traMADol HCL 50 MG TAB PO PRN (17:52)
--- NOTE | 2020-08-09 21:16 | NUR ---
Pain Medication Administration Patient complaining of right breast pain 10/10. Will administer pain medication per MD order. Will reassess pain level and will continue to monitor.
--- NOTE | 2020-08-09 21:46 | NUR ---
Pain Level Reassessment Patient asleep for pain level reassessment. No signs or symptoms of distress noted. Will continue to monitor.
[2020-08-09 22:00] VITALS: BP 118/53
[2020-08-10] MEDS: HYDROmorphone HCL 2 MG/ML VL IV PRN ×3 (04:17→18:46)
--- NOTE | 2020-08-10 04:17 | NUR ---
Pain Medication Administration Patient complaining of right breast pain 10/10. Will administer pain medication per MD order. Will reassess pain level and will continue to monitor.
--- NOTE | 2020-08-10 04:19 | NUR ---
IV insertion Inserted 20g IV catheter to Left Forearm. IV secured properly. No trauma to site. Patient tolerated well. NOTE: Patient needs two IVs for pending stress test.
--- NOTE | 2020-08-10 04:47 | NUR ---
Pain Level Reassessment Patient asleep for pain level reassessment. No signs or symptoms of distress noted. Will continue to monitor.
[2020-08-10 05:00] VITALS: BP 118/50
[2020-08-10 05:30] LABS: Basophils # (auto) 0 10 ^3/uL (0-0.2); Basophils % (auto) 0.9 % (0.0-2.0); Eosinophils # (auto) 0.4 10 ^3/uL (0-0.8); Eosinophils % (auto) 9.7 % (0.0-7.0); Hematocrit 36.6 % (36.0-46.0); Hemoglobin 12.5 g/dL (12.2-16.2); Lymphocytes # (auto) 1.1 10 ^3/uL (0.4-5.4); Lymphocytes % (auto) 26.2 % (10.0-50.0); Mean Corpuscular Hemoglobin 33.3 pg (28.0-32.0); Mean Corpuscular Volume 97.9 fL (80.0-100.0); Monocytes # (auto) 0.3 10 ^3/uL (0-1.3); Monocytes % (auto) 7.6 % (0.0-12.0); Neutrophils # (auto) 2.3 10 ^3/uL (1.6-8.6); Neutrophils % (auto) 55.6 % (37.0-80.0); Nucleated Red Blood Cells % 0.1 %; Platelet Count (auto) 178 10^3/uL (140-450); Red Blood Cells 3.74 10^6/uL (4.0-5.20); Red Cell Distribution Width 15.2 % (11.8-14.3); White Blood Cell 4.2 10^3/uL (4.4-10.8)
[2020-08-10 05:43] LABS: INR 0.98 (0.9-1.15)
[2020-08-10 05:57] LABS: Anion Gap 2 (5-15); Blood Urea Nitrogen 15 mg/dL (7-18); Calcium 8.6 mg/dL (8.5-10.1); Carbon Dioxide 29 mmol/L (21-32); Chloride 109 mmol/L (98-107); Glucose 93 mg/dL (74-106); Potassium 3.8 mmol/L (3.5-5.1); Sodium 140 mmol/L (136-145)
[2020-08-10 06:02] LABS: BUN/Creatinine Ratio 17.6; GFR African American 88 mL/min; GFR Non-African American 73 mL/min
[2020-08-10 08:00] VITALS: BP 129/73
[2020-08-10] MEDS: ENOXAPARIN SOD 40 MG/0.4 ML SYRINGE SC SCH (08:27)
[2020-08-10] MEDS: PROMETHAZINE HCL 25 MG/ML 1ML IV PRN ×2 (08:27→18:46)
[2020-08-10 09:00] VITALS: BP 115/67
[2020-08-10 13:00] VITALS: BP 110/67
--- NOTE | 2020-08-10 14:51 | NUR ---
Nutrition Assessment Notes Please refer to link for full assessment notes. Est Energy needs: 6981-2976 kcals (12-15 kcal/kgBW) Est Protein needs: 95-119 gms/day (1.0-1.1 gm/kgBW) Will continue to monitor and reassess prn. Addendum: 08/10/20 at [address] Amended: Links added.
[2020-08-10 17:00] VITALS: BP 105/55
--- NOTE | 2020-08-10 18:54 | NUR ---
pain Patient c/o right breast pain, rates it /10, will administer medication as prescribed by MD.
--- NOTE | 2020-08-10 19:16 | NUR ---
Opening Shift Note Received report and assumed care of patient. Patient is awake and alert. No signs or symptoms of distress noted, patient currently denies pain. Instructed patient on plan of care and to call for assistance as needed. Will continue to monitor.
[2020-08-10 22:00] VITALS: BP 112/58
[2020-08-11] VITALS (7 sets, daily range): BP systolic 104–129; BP diastolic 43–69
--- NOTE | 2020-08-11 00:24 | NUR ---
IV removal/insertion 20g IV to the Left wrist leaking. Discontinued IV with clean technique, catheter tip fully intact. Pressure dressing applied to site. NOTE: Inserted 22g IV to the Left hand. Patient tolerated well.
[2020-08-11] MEDS: PROMETHAZINE HCL 25 MG/ML 1ML IV PRN ×4 (00:29→19:57)
[2020-08-11] MEDS: HYDROmorphone HCL 2 MG/ML VL IV PRN ×4 (00:30→20:02)
--- NOTE | 2020-08-11 00:30 | NUR ---
Pain Medication Administration Patient complaining of right breast pain 06/19. Will administer pain medication per MD order. Will reassess pain level and will continue to monitor.
--- NOTE | 2020-08-11 01:00 | NUR ---
Pain Level Reassessment Patient asleep for pain level reassessment. No signs or symptoms of distress noted. Will continue to monitor.
[2020-08-11 06:21] LABS: Basophils # (auto) 0 10 ^3/uL (0-0.2); Basophils % (auto) 0.8 % (0.0-2.0); Eosinophils # (auto) 0.3 10 ^3/uL (0-0.8); Eosinophils % (auto) 7.5 % (0.0-7.0); Hemoglobin 12.2 g/dL (12.2-16.2); Lymphocytes # (auto) 1.1 10 ^3/uL (0.4-5.4); Lymphocytes % (auto) 25.2 % (10.0-50.0); Mean Corpuscular Hemoglobin 33.2 pg (28.0-32.0); Mean Corpuscular Volume 97.5 fL (80.0-100.0); Monocytes # (auto) 0.3 10 ^3/uL (0-1.3); Monocytes % (auto) 7.7 % (0.0-12.0); Neutrophils # (auto) 2.6 10 ^3/uL (1.6-8.6); Neutrophils % (auto) 58.8 % (37.0-80.0); Nucleated Red Blood Cells % 0.1 %; Platelet Count (auto) 164 10^3/uL (140-450); Red Blood Cells 3.69 10^6/uL (4.0-5.20); White Blood Cell 4.5 10^3/uL (4.4-10.8)
[2020-08-11 06:28] LABS: Blood Urea Nitrogen 14 mg/dL (7-18); Calcium 8.6 mg/dL (8.5-10.1); Carbon Dioxide 28 mmol/L (21-32); Glucose 85 mg/dL (74-106)
[2020-08-11 06:35] LABS: Anion Gap 4 (5-15); BUN/Creatinine Ratio 15.6; Chloride 107 mmol/L (98-107); GFR African American 82 mL/min; GFR Non-African American 68 mL/min; Potassium 3.9 mmol/L (3.5-5.1); Sodium 139 mmol/L (136-145)
--- NOTE | 2020-08-11 08:06 | NUR ---
OFF UNIT PATIENT TAKEN TO STRESS LAB.
[2020-08-11] MEDS ORDERED: ADENOSINE 99 MG in GIVE UN-DILUTED 0 ML IV STA (08:28)
[2020-08-11] MEDS: ENOXAPARIN SOD 40 MG/0.4 ML SYRINGE SC SCH (09:49)
--- NOTE | 2020-08-11 19:45 | NUR ---
Opening Shift Note Assumed care of patient, awake and alert. Patient walking in room. Patient stating she has pain on her breast area and leg; 10/0-10. Medicated patient for pain. Patient on 2L NC. Safety measures maintained by keeping the bed locked in lowest position, 2 side rails up, personal items and call light within reach. Instructed on POC and to call for assist PRN, will continue to monitor for changes Q1hr and PRN.
[2020-08-12] MEDS: PROMETHAZINE HCL 25 MG/ML 1ML IV PRN ×5 (00:40→20:52)
[2020-08-12] MEDS: HYDROmorphone HCL 2 MG/ML VL IV PRN ×5 (00:41→20:52)
[2020-08-12 05:00] VITALS: BP 145/74
[2020-08-12 06:51] LABS: Basophils # (auto) 0 10 ^3/uL (0-0.2); Basophils % (auto) 0.7 % (0.0-2.0); Eosinophils # (auto) 0.3 10 ^3/uL (0-0.8); Eosinophils % (auto) 6.5 % (0.0-7.0); Hematocrit 38.6 % (36.0-46.0); Hemoglobin 13.1 g/dL (12.2-16.2); Lymphocytes # (auto) 0.9 10 ^3/uL (0.4-5.4); Lymphocytes % (auto) 20.5 % (10.0-50.0); Mean Corpuscular Hemoglobin 33.2 pg (28.0-32.0); Mean Corpuscular Volume 97.4 fL (80.0-100.0); Monocytes # (auto) 0.4 10 ^3/uL (0-1.3); Monocytes % (auto) 8.5 % (0.0-12.0); Neutrophils % (auto) 63.8 % (37.0-80.0); Platelet Count (auto) 176 10^3/uL (140-450); Red Blood Cells 3.96 10^6/uL (4.0-5.20); Red Cell Distribution Width 15.1 % (11.8-14.3); White Blood Cell 4.6 10^3/uL (4.4-10.8)
[2020-08-12 07:13] LABS: Calcium 9.1 mg/dL (8.5-10.1); Potassium 4.1 mmol/L (3.5-5.1)
[2020-08-12 07:15] LABS: BUN/Creatinine Ratio 18.5
--- NOTE | 2020-08-12 07:30 | NUR ---
Opening Shift Note Assumed care of patient, awake and alert. No S/S of distress/SOB or pain. Instructed on POC and to call for assist PRN, will continue to monitor for changes Q1hr and PRN. Bed locked in lowest position with two side rails up and call light in reach.
[2020-08-12 08:00] VITALS: BP 111/60
[2020-08-12 09:00] VITALS: BP 111/60
--- NOTE | 2020-08-12 09:00 | NUR ---
PATIENT HAVING PAIN ON BILATERAL BREAST SITE. MEDICATED ACCORDING TO EMAR. WILL CONTINUE TO MONITOR.
[2020-08-12] MEDS: ENOXAPARIN SOD 40 MG/0.4 ML SYRINGE SC SCH (09:16)
[2020-08-12] MEDS ORDERED: ASPirin 81 mg TAB PO ONE (09:45)
--- NOTE | 2020-08-12 09:45 | NUR ---
DR CRISTIAN NEGRON.
--- NOTE | 2020-08-12 12:33 | NUR ---
assessment Patient is a 60 year old female who is alert and oriented. Patients cognitive abilities are intact. Prior to admission patient lived home with family and functioned independently. Patient informed me she is able to care for her own ADLs. Per patient she will return home to her prior living arrangements post discharge and family will transport her home. Patients PCP is Dr Polanco. Patient has no safety concerns regarding returning home on discharge. Patient was admitted for chest pain. I informed patient I will continue to monitor and follow up as appropriate for any post discharge needs. I informed patient she has a right to speak to a social professionals regarding all care. I informed patient she has a right to participate in any and all discharge planning. Patient does not have a POA and advanced directive. I have offered patient information on POA and advanced directives. I informed the patient the advantages and benefits of having an Advanced Directive. Patient verbalized understanding and agreed to discharge plan. Addendum: 08/12/20 at 1246 by Janene CARRION Amended: Links added.
--- NOTE | 2020-08-12 12:59 | NUR ---
ECHO CANCELLED PER ECHO DEPARTMENT AT DR SOTO REQUEST. PATIENT HAD ECHO BACK IN MAY I LOOK AT OTHER VISIT HISTORY.
[2020-08-12 13:00] VITALS: BP 106/65
[2020-08-12 17:00] VITALS: BP 114/65
--- NOTE | 2020-08-12 19:40 | NUR ---
Opening Shift Note Assumed care of patient, awake and alert. No S/S of distress/SOB or pain. Safety measures maintained by keeping the bed locked in lowest position, 2 side rails up, personal items and call light within reach. Instructed on POC and to call for assist PRN, will continue to monitor for changes Q1hr and PRN.
--- NOTE | 2020-08-12 20:52 | NUR ---
Pain Medication Administration Patient complaining of right breast pain 10/. Will administer pain medication as per MD orders.
[2020-08-12 22:00] VITALS: BP 110/70
[2020-08-13] MEDS: HYDROmorphone HCL 2 MG/ML VL IV PRN ×5 (02:08→21:02)
[2020-08-13] MEDS: PROMETHAZINE HCL 25 MG/ML 1ML IV PRN ×5 (02:08→21:01)
[2020-08-13 06:00] VITALS: BP 104/50
[2020-08-13 06:57] LABS: Basophils # (auto) 0 10 ^3/uL (0-0.2); Basophils % (auto) 1.1 % (0.0-2.0); Eosinophils # (auto) 0.3 10 ^3/uL (0-0.8); Eosinophils % (auto) 8.3 % (0.0-7.0); Hematocrit 37.5 % (36.0-46.0); Hemoglobin 12.8 g/dL (12.2-16.2); Lymphocytes % (auto) 24.9 % (10.0-50.0); Mean Corpuscular Hemoglobin 33.3 pg (28.0-32.0); Mean Corpuscular Volume 97.8 fL (80.0-100.0); Monocytes # (auto) 0.4 10 ^3/uL (0-1.3); Neutrophils # (auto) 2.3 10 ^3/uL (1.6-8.6); Neutrophils % (auto) 56.7 % (37.0-80.0); Nucleated Red Blood Cells % 0.1 %; Platelet Count (auto) 168 10^3/uL (140-450); Red Blood Cells 3.84 10^6/uL (4.0-5.20); Red Cell Distribution Width 15.1 % (11.8-14.3); White Blood Cell 4.1 10^3/uL (4.4-10.8)
[2020-08-13 07:09] LABS: BUN/Creatinine Ratio 19.1; Calcium 9.1 mg/dL (8.5-10.1); Potassium 4.1 mmol/L (3.5-5.1)
[2020-08-13 08:00] VITALS: BP 111/56
[2020-08-13 09:00] VITALS: BP 111/56
[2020-08-13] MEDS: ENOXAPARIN SOD 40 MG/0.4 ML SYRINGE SC SCH (09:29)
[2020-08-13] MEDS: ASPirin 81 mg TAB PO SCH (09:29)
--- NOTE | 2020-08-13 12:29 | NUR ---
Nutrition Followup Note: Wt 119.3 KG Pt was with MD at bedside. per records pt with chest pain s/p stress test and ECHO. pt is currently on cardiac diet with adequate PO of >75% x 4 per RN doc. pt with no distress noted. Est Energy needs: 4153-5766 kcals (12-15 kcal/kgBW), Est Protein needs: 95-119 gms/day (1.0-1.1 gm/kgBW). Will continue to monitor and reassess prn. Labs: All nutrition related labs wnl for today BM: Pt had 1 BM yesterday per RN doc Skin: BS 20 low risk, full details in plant care worker note PES: 1) Obesity aeb BMI of 45.1 kg/m2 r/t energy intake in excess of energy needs Comments: will continue to monotor PO intake skin status, labs. F/u mod 3-5 days Rec: 1) refer to [employer] machine splitter on DC 2) continue current plan of care
[2020-08-13 13:00] VITALS: BP 112/61
[2020-08-13 16:56] VITALS: BP 99/70
--- NOTE | 2020-08-13 17:18 | NUR ---
DR CHARLES NEGRON, PER DR SOTO PATIENT CAN GO HOME.
[2020-08-13 22:00] VITALS: BP 100/68
[2020-08-14] MEDS: HYDROmorphone HCL 2 MG/ML VL IV PRN ×3 (02:03→12:15)
[2020-08-14] MEDS: PROMETHAZINE HCL 25 MG/ML 1ML IV PRN ×3 (02:03→12:15)
[2020-08-14 05:05] VITALS: BP 108/65
[2020-08-14 05:15] LABS: Basophils # (auto) 0 10 ^3/uL (0-0.2); Basophils % (auto) 0.6 % (0.0-2.0); Eosinophils # (auto) 0.3 10 ^3/uL (0-0.8); Eosinophils % (auto) 7.6 % (0.0-7.0); Hematocrit 37.4 % (36.0-46.0); Hemoglobin 12.6 g/dL (12.2-16.2); Lymphocytes # (auto) 1.2 10 ^3/uL (0.4-5.4); Lymphocytes % (auto) 25.9 % (10.0-50.0); Mean Corpuscular Hemoglobin 33.5 pg (28.0-32.0); Mean Corpuscular Hgb Conc. 33.8 g/dL (32.0-36.0); Mean Corpuscular Volume 99.2 fL (80.0-100.0); Monocytes # (auto) 0.4 10 ^3/uL (0-1.3); Monocytes % (auto) 8.1 % (0.0-12.0); Neutrophils # (auto) 2.6 10 ^3/uL (1.6-8.6); Neutrophils % (auto) 57.8 % (37.0-80.0); Nucleated Red Blood Cells % 0.2 %; Platelet Count (auto) 137 10^3/uL (140-450); Red Blood Cells 3.77 10^6/uL (4.0-5.20); Red Cell Distribution Width 14.7 % (11.8-14.3); White Blood Cell 4.5 10^3/uL (4.4-10.8)
[2020-08-14 05:35] LABS: BUN/Creatinine Ratio 20.5; Calcium 8.7 mg/dL (8.5-10.1)
[2020-08-14 09:00] VITALS: BP_SYST 110
[2020-08-14] MEDS: ASPirin 81 mg TAB PO SCH (09:16)
[2020-08-14] MEDS: ENOXAPARIN SOD 40 MG/0.4 ML SYRINGE SC SCH (09:16)
--- NOTE | 2020-08-14 09:36 | NUR ---
Dr. Gomez at bedside aware of pt last BM 08/07, received new orders, noted and carried it out.
[2020-08-14] MEDS ORDERED: SENNA 8.6 MG TAB PO ONE (09:45)
[2020-08-14 11:13] VITALS: BP 129/69
[2020-08-14 13:00] VITALS: BP 101/63
--- NOTE | 2020-08-14 15:25 | NUR ---
Discharge instructions given as ordered. Encourage to follow up with PMD FOLLOW-UP WITH PRIMARY CARE PROVIDER IN [address] MARCUM #[phone] AD[address]ESS : [address] [place] [address], [address], [place], [place], [id number] instructed. All questions and concerns addressed. Patient verbalized understanding. Medication reconciliation form completed and copy given to patient. IV removed with catheter intact, pressure dressing applied. Telemetry unit returned to ICU. Patient taken to vehicle via wheelchair with all personal belongings, accompanied by staff and family member. No distress noted at time of departure.
== END 2020-08-14 15:25 | disposition home or self-care (01) | DRG 203 ==
LOC: ER 15:07 → TELE 15:08 → TELE-CENTR 19:57
PROVIDERS: ADMIT Internal Medicine; ATTEND Internal Medicine Pulmonary Disease
DX: R07.9 Chest pain, unspecified (principal); E66.01 Morbid (severe) obesity due to excess calories; I10 Essential (primary) hypertension; E03.9 Hypothyroidism, unspecified; E78.5 Hyperlipidemia, unspecified; M79.661 Pain in right lower leg; F17.200 Nicotine dependence, unspecified, uncomplicated; Z82.49 Family history of ischemic heart disease and other diseases of the circulatory system; Z85.3 Personal history of malignant neoplasm of breast; Z86.711 Personal history of pulmonary embolism; Z86.718 Personal history of other venous thrombosis and embolism; Z90.710 Acquired absence of both cervix and uterus; Z90.49 Acquired absence of other specified parts of digestive tract; Z79.899 Other long term (current) drug therapy; Z88.5 Allergy status to narcotic agent; Z88.0 Allergy status to penicillin; Z68.42 Body mass index [BMI] 45.0-49.9, adult
CPT/HCPCS: 36415; 71045; 71275; 78452; 80048; 80053; 81001; 82550; 84443; 84484; 85025; 85379; 85610; 85652; 93005; 93017; 93970; 96361; 96374; 96375; G0378; J0153; J1885; J2405

== ENCOUNTER 2020-09-08 15:14 | Emergency (ER) | payer MEDICAID ==
[~2020-09-08] VITALS: Ht 162.6 cm; Wt 113.4 kg
[2020-09-08] MEDS ORDERED: KETOROLAC TROMETH 60MG/2ML VIAL IM ONE (17:00)
[2020-09-08 20:01] VITALS: BP 129/72
== END 2020-09-08 20:05 | disposition home or self-care (01) ==
LOC: ER 15:14
DX: J02.9 Acute pharyngitis, unspecified (principal); N64.4 Mastodynia
CPT/HCPCS: 76642; 96372; 99284; J1885

== ENCOUNTER 2021-01-29 20:57 | Emergency (ER) | payer MEDICAID ==
[~2021-01-29] VITALS: Ht 162.6 cm; Wt 124.7 kg
[2021-01-29 21:47] LABS: Basophils # (auto) 0 10 ^3/uL (0-0.2); Basophils % (auto) 0.6 % (0.0-2.0); Eosinophils # (auto) 0.1 10 ^3/uL (0-0.8); Eosinophils % (auto) 2.4 % (0.0-7.0); Hematocrit 39.9 % (36.0-46.0); Lymphocytes # (auto) 1.1 10 ^3/uL (0.4-5.4); Lymphocytes % (auto) 18.5 % (10.0-50.0); Mean Corpuscular Hemoglobin 33.5 pg (28.0-32.0); Mean Corpuscular Hgb Conc. 35.2 g/dL (32.0-36.0); Mean Corpuscular Volume 95.2 fL (80.0-100.0); Monocytes # (auto) 0.4 10 ^3/uL (0-1.3); Monocytes % (auto) 6.4 % (0.0-12.0); Neutrophils # (auto) 4.3 10 ^3/uL (1.6-8.6); Neutrophils % (auto) 72.1 % (37.0-80.0); Nucleated Red Blood Cells % 0.1 %; Platelet Count (auto) 210 10^3/uL (140-450); Red Blood Cells 4.19 10^6/uL (4.0-5.20); Red Cell Distribution Width 13.4 % (11.8-14.3)
[2021-01-29 22:02] LABS: Anion Gap 9 (5-15); Blood Urea Nitrogen 19 mg/dL (7-18); Calcium 8.9 mg/dL (8.5-10.1); Carbon Dioxide 21 mmol/L (21-32); Chloride 109 mmol/L (98-107); Glucose 94 mg/dL (74-106); Potassium 3.8 mmol/L (3.5-5.1); Sodium 139 mmol/L (136-145)
[2021-01-29 22:04] LABS: Alanine Aminotransferase 40 U/L (13-56); Aspartate Aminotransferase 43 U/L (15-37); BUN/Creatinine Ratio 18.6; GFR African American 71 mL/min; GFR Non-African American 59 mL/min
[2021-01-29 22:09] LABS: Alkaline Phosphatase 84 U/L (45-117); Bilirubin, Total 1.1 mg/dL (0.2-1.0); Total Protein 7.5 g/dL (6.4-8.2)
[2021-01-29 23:05] LABS: Urine Bacteria NONE SEEN /hpf (None Seen); Urine Blood Negative /uL (Negative); Urine Mucus FEW (None Seen); Urine Specific Gravity 1.016 (1.001-1.035); Urine WBC 10 /hpf (0 - 5)
[2021-01-30] MEDS ORDERED: SODIUM CHLORIDE 0.9% 1,000 ML IV ONE (01:15)
[2021-01-30] MEDS ORDERED: KETOROLAC TROMETH 30 MG/ML 1ML VIAL IV ONE (02:00)
[2021-01-30] MEDS ORDERED: ONDANSETRON HCL 4 MG/2 ML VIAL IV ONE (02:00)
[2021-01-30] MEDS ORDERED: traMADol HCL 50 MG TAB PO ONE (04:30)
[2021-01-30 04:54] VITALS: BP 124/89
== END 2021-01-30 04:56 | disposition home or self-care (01) ==
LOC: ER 20:59
DX: N39.0 Urinary tract infection, site not specified (principal); G89.4 Chronic pain syndrome; Z88.0 Allergy status to penicillin; Z88.6 Allergy status to analgesic agent; Z90.49 Acquired absence of other specified parts of digestive tract; Z90.710 Acquired absence of both cervix and uterus; Z98.51 Tubal ligation status; Z77.22 Contact with and (suspected) exposure to environmental tobacco smoke (acute) (chronic)
CPT/HCPCS: 36415; 74176; 80053; 81001; 83605; 84484; 85025; 93005; 96361; 96374; 96375; 99285; J1885; J2405; J7030

== ENCOUNTER 2021-06-18 19:50 | Emergency (ER) | payer MEDICAID ==
[~2021-06-18] VITALS: Ht 162.6 cm; Wt 113.4 kg
[2021-06-18] MEDS ORDERED: ACETAMINOPHEN 325 MG TAB PO ONE (20:30)
[2021-06-18 20:51] LABS: Basophils # (auto) 0.1 10 ^3/uL (0-0.2); Eosinophils # (auto) 0.1 10 ^3/uL (0-0.8); Eosinophils % (auto) 1.7 % (0.0-7.0); Hematocrit 40.9 % (36.0-46.0); Hemoglobin 13.8 g/dL (12.2-16.2); Lymphocytes # (auto) 1.6 10 ^3/uL (0.4-5.4); Lymphocytes % (auto) 25.1 % (10.0-50.0); Mean Corpuscular Hemoglobin 32.7 pg (28.0-32.0); Mean Corpuscular Hgb Conc. 33.8 g/dL (32.0-36.0); Mean Corpuscular Volume 96.9 fL (80.0-100.0); Monocytes # (auto) 0.5 10 ^3/uL (0-1.3); Neutrophils % (auto) 64.2 % (37.0-80.0); Red Blood Cells 4.22 10^6/uL (4.0-5.20); Red Cell Distribution Width 14.6 % (11.8-14.3); White Blood Cell 6.2 10^3/uL (4.4-10.8)
[2021-06-18 21:11] LABS: Alanine Aminotransferase 45 U/L (13-56); Albumin 3.5 g/dL (3.4-5.0); Anion Gap 11 (5-15); Aspartate Aminotransferase 31 U/L (15-37); Blood Urea Nitrogen 18 mg/dL (7-18); Calcium 9.1 mg/dL (8.5-10.1); Carbon Dioxide 23 mmol/L (21-32); Chloride 109 mmol/L (98-107); GFR African American 68 mL/min; GFR Non-African American 56 mL/min; Glucose 108 mg/dL (74-106); Potassium 3.9 mmol/L (3.5-5.1); Sodium 143 mmol/L (136-145)
[2021-06-18 21:27] LABS: Alkaline Phosphatase 88 U/L (45-117); Bilirubin, Total 0.5 mg/dL (0.2-1.0); Total Protein 7.5 g/dL (6.4-8.2)
[2021-06-19 01:17] LABS: Urine Bacteria FEW /hpf (None Seen); Urine Blood Negative /uL (Negative); Urine Mucus FEW (None Seen); Urine Specific Gravity 1.016 (1.001-1.035); Urine WBC 5 /hpf (0 - 5)
[2021-06-19 02:44] VITALS: BP 132/71
== END 2021-06-19 03:35 | disposition home or self-care (01) ==
LOC: ER 19:50
DX: R30.0 Dysuria (principal); F41.9 Anxiety disorder, unspecified; Z88.5 Allergy status to narcotic agent; Z88.0 Allergy status to penicillin; Z79.899 Other long term (current) drug therapy; Z85.3 Personal history of malignant neoplasm of breast; Z87.440 Personal history of urinary (tract) infections; Z90.89 Acquired absence of other organs; Z90.49 Acquired absence of other specified parts of digestive tract; Z98.51 Tubal ligation status; Z90.710 Acquired absence of both cervix and uterus; Z98.890 Other specified postprocedural states
CPT/HCPCS: 36415; 71045; 80053; 81001; 83880; 84484; 85025; 93005

== ENCOUNTER 2021-07-14 15:57 | Emergency (ER) | payer MEDICAID ==
[~2021-07-14] VITALS: Ht 162.6 cm; Wt 113.4 kg
[2021-07-14 16:38] VITALS: BP 142/82
[2021-07-14 17:16] LABS: Basophils # (auto) 0 10 ^3/uL (0-0.2); Basophils % (auto) 0.8 % (0.0-2.0); Eosinophils # (auto) 0.2 10 ^3/uL (0-0.8); Eosinophils % (auto) 3.4 % (0.0-7.0); Hematocrit 39.6 % (36.0-46.0); Hemoglobin 13.2 g/dL (12.2-16.2); Lymphocytes # (auto) 1.4 10 ^3/uL (0.4-5.4); Lymphocytes % (auto) 28.7 % (10.0-50.0); Mean Corpuscular Hemoglobin 32.1 pg (28.0-32.0); Mean Corpuscular Hgb Conc. 33.3 g/dL (32.0-36.0); Mean Corpuscular Volume 96.4 fL (80.0-100.0); Monocytes # (auto) 0.4 10 ^3/uL (0-1.3); Monocytes % (auto) 7.3 % (0.0-12.0); Neutrophils # (auto) 2.9 10 ^3/uL (1.6-8.6); Neutrophils % (auto) 59.8 % (37.0-80.0); Nucleated Red Blood Cells % 0.1 %; Red Blood Cells 4.11 10^6/uL (4.0-5.20); Red Cell Distribution Width 14.4 % (11.8-14.3); White Blood Cell 4.9 10^3/uL (4.4-10.8)
[2021-07-14 17:34] LABS: Alanine Aminotransferase 30 U/L (13-56); Albumin 3.5 g/dL (3.4-5.0); Anion Gap 7 (5-15); Aspartate Aminotransferase 21 U/L (15-37); BUN/Creatinine Ratio 16.7; Blood Urea Nitrogen 15 mg/dL (7-18); Calcium 8.6 mg/dL (8.5-10.1); Carbon Dioxide 24 mmol/L (21-32); Chloride 111 mmol/L (98-107); GFR African American 82 mL/min; GFR Non-African American 68 mL/min; Glucose 92 mg/dL (74-106); Magnesium 2.3 mg/dL (1.6-2.6); Sodium 142 mmol/L (136-145)
[2021-07-14 17:39] LABS: Alkaline Phosphatase 69 U/L (45-117); Bilirubin, Total 0.6 mg/dL (0.2-1.0); Total Protein 7.3 g/dL (6.4-8.2)
== END 2021-07-14 22:53 | disposition left against medical advice (07) ==
LOC: ER 15:57
DX: R07.89 Other chest pain (principal); E78.5 Hyperlipidemia, unspecified; Z98.51 Tubal ligation status; Z90.710 Acquired absence of both cervix and uterus; Z90.49 Acquired absence of other specified parts of digestive tract; Z90.89 Acquired absence of other organs; Z88.6 Allergy status to analgesic agent; Z88.0 Allergy status to penicillin; Z85.3 Personal history of malignant neoplasm of breast; Z53.29 Procedure and treatment not carried out because of patient's decision for other reasons
CPT/HCPCS: 36415; 71046; 80053; 83735; 83880; 84484; 85025; 85379; 93005

== ENCOUNTER 2022-02-17 12:59 | Inpatient (IN) | payer MEDICAID ==
[~2022-02-17] VITALS: Ht 162.6 cm; Wt 130.7 kg
[2022-02-17 14:34] LABS: Basophils # (auto) 0.1 10 ^3/uL (0-0.2); Basophils % (auto) 1.3 % (0.0-2.0); Eosinophils # (auto) 0.1 10 ^3/uL (0-0.8); Eosinophils % (auto) 2.9 % (0.0-7.0); Hematocrit 40.4 % (36.0-46.0); Lymphocytes # (auto) 0.8 10 ^3/uL (0.4-5.4); Lymphocytes % (auto) 16.5 % (10.0-50.0); Mean Corpuscular Hemoglobin 33.5 pg (28.0-32.0); Mean Corpuscular Hgb Conc. 34.7 g/dL (32.0-36.0); Mean Corpuscular Volume 96.6 fL (80.0-100.0); Monocytes # (auto) 0.3 10 ^3/uL (0-1.3); Monocytes % (auto) 5.5 % (0.0-12.0); Neutrophils # (auto) 3.4 10 ^3/uL (1.6-8.6); Neutrophils % (auto) 73.8 % (37.0-80.0); Red Blood Cells 4.18 10^6/uL (4.0-5.20); Red Cell Distribution Width 14.4 % (11.8-14.3); White Blood Cell 4.6 10^3/uL (4.4-10.8)
[2022-02-17 14:51] LABS: Albumin 3.6 g/dL (3.4-5.0); Calcium 8.9 mg/dL (8.5-10.1); Potassium 4.5 mmol/L (3.5-5.1)
[2022-02-17 14:54] LABS: BUN/Creatinine Ratio 11.1; Bilirubin, Total 0.9 mg/dL (0.2-1.0); Total Protein 7.6 g/dL (6.4-8.2)
[2022-02-17] MEDS ORDERED: IOHEXOL 350 MG/ML 100ML IJ ONE (15:53)
[2022-02-17] MEDS ORDERED: FURO1TAB33 PO (17:34)
[2022-02-17] MEDS ORDERED: PANT40TA2 PO (17:34)
[2022-02-17] MEDS ORDERED: NITR0.4S29 SL (17:34)
[2022-02-17] MEDS ORDERED: SIMV-8 PO (17:34)
[2022-02-17] MEDS ORDERED: CARV6.2551 PO (17:34)
[2022-02-17] MEDS ORDERED: DAPA1TAB4 PO (17:34)
[2022-02-17] MEDS ORDERED: RIVA20TA PO (17:34)
[2022-02-17] MEDS ORDERED: ISOS60TA24 PO (17:34)
[2022-02-17] MEDS ORDERED: SPIR25TA8 PO (17:34)
[2022-02-17] MEDS ORDERED: OXYCODONE W/ ACETAMINOPHEN 5/325MG TABLET PO ONE (23:00)
[2022-02-18] MEDS ORDERED: ONDANSETRON HCL 4 MG/2 ML VIAL IV PRN (00:15)
[2022-02-18] MEDS ORDERED: NITROGLYCERIN 0.4 MG SL TAB SL PRN (00:15)
[2022-02-18] MEDS ORDERED: DOCUSATE SOD 100 MG CAP PO PRN (00:15)
[2022-02-18 01:03] VITALS: BP 128/69
[2022-02-18] MEDS: SODIUM CHLOR 0.9% PF (SALINE LOCK) 10ML VIAL/SYR IV SCH ×3 (06:15→21:25)
[2022-02-18] MEDS: ACETAMINOPHEN 325 MG TAB PO PRN ×2 (06:15→16:29)
[2022-02-18] MEDS: LEVOTHYROXINE SODIUM 50 MCG TAB PO SCH (06:29)
[2022-02-18 09:00] VITALS: BP 111/69
[2022-02-18] MEDS ORDERED: ASPirin 81 mg TAB PO SCH (10:00)
[2022-02-18] MEDS ORDERED: ENOXAPARIN SOD 40 MG/0.4 ML SYRINGE SC SCH (10:00)
[2022-02-18 13:00] VITALS: BP 119/65
[2022-02-18] MEDS ORDERED: PANTOPRAZOLE 40 MG TAB PO ONE (14:00)
[2022-02-18] MEDS ORDERED: FUROSEMIDE 20 MG TAB PO ONE (14:00)
[2022-02-18] MEDS ORDERED: SPIRONOLACTONE 25 MG TAB PO ONE (14:00)
[2022-02-18] MEDS ORDERED: POTASSIUM CHL 10 Meq TABLET PO ONE (14:00)
[2022-02-18 17:00] VITALS: BP 138/76
[2022-02-18] MEDS ORDERED: RIVAROXABAN 20 MG TAB PO SCH (18:00)
[2022-02-18] MEDS ORDERED: ATORVASTATIN 20 MG TAB PO SCH (22:00)
[2022-02-19] MEDS: ACETAMINOPHEN 325 MG TAB PO PRN ×2 (03:06→12:10)
[2022-02-19 03:09] VITALS: BP 127/62
[2022-02-19 05:00] VITALS: BP 125/84
[2022-02-19] MEDS: LEVOTHYROXINE SODIUM 50 MCG TAB PO SCH (06:17)
[2022-02-19] MEDS: SODIUM CHLOR 0.9% PF (SALINE LOCK) 10ML VIAL/SYR IV SCH ×2 (06:17→14:00)
[2022-02-19 06:18] LABS: Basophils # (auto) 0 10 ^3/uL (0-0.2); Eosinophils # (auto) 0.1 10 ^3/uL (0-0.8); Lymphocytes # (auto) 1.1 10 ^3/uL (0.4-5.4)
[2022-02-19 06:20] LABS: Basophils % (auto) 0.8 % (0.0-2.0); Eosinophils % (auto) 3.1 % (0.0-7.0); Hematocrit 37.4 % (36.0-46.0); Hemoglobin 13.3 g/dL (12.2-16.2); Lymphocytes % (auto) 25.1 % (10.0-50.0); Mean Corpuscular Hemoglobin 33.9 pg (28.0-32.0); Mean Corpuscular Hgb Conc. 35.5 g/dL (32.0-36.0); Mean Corpuscular Volume 95.6 fL (80.0-100.0); Monocytes # (auto) 0.4 10 ^3/uL (0-1.3); Monocytes % (auto) 8.2 % (0.0-12.0); Neutrophils # (auto) 2.7 10 ^3/uL (1.6-8.6); Neutrophils % (auto) 62.8 % (37.0-80.0); Nucleated Red Blood Cells % 0.2 %; Red Blood Cells 3.91 10^6/uL (4.0-5.20); Red Cell Distribution Width 14.4 % (11.8-14.3); White Blood Cell 4.4 10^3/uL (4.4-10.8)
[2022-02-19 06:40] LABS: Albumin 3.5 g/dL (3.4-5.0); BUN/Creatinine Ratio 17.4; Bilirubin, Total 0.8 mg/dL (0.2-1.0); Calcium 9.2 mg/dL (8.5-10.1); Total Protein 7.2 g/dL (6.4-8.2)
[2022-02-19] MEDS ORDERED: SPIRONOLACTONE 25 MG TAB PO SCH (10:00)
[2022-02-19] MEDS ORDERED: PANTOPRAZOLE 40 MG TAB PO SCH (10:00)
[2022-02-19] MEDS ORDERED: POTASSIUM CHL 10 Meq TABLET PO SCH (10:00)
[2022-02-19] MEDS ORDERED: FUROSEMIDE 20 MG TAB PO SCH (10:00)
[2022-02-19 13:00] VITALS: BP 122/69
[2022-02-19] MEDS ORDERED: POTA-167 PO (14:32)
[2022-02-19] MEDS ORDERED: FURO1TAB31 PO (14:32)
[2022-02-19 15:42] VITALS: BP 122/69
[2022-02-19] MEDS ORDERED: CARVEDILOL 3.125 MG TAB PO SCH (22:00)
[2022-02-20] MEDS ORDERED: DAPAGLIFLOZIN 5 MG TAB PO SCH (10:00)
== END 2022-02-19 16:54 | disposition home or self-care (01) | DRG 198 ==
LOC: ER 12:59 → TELE 02-18 00:07 → TELE-WESTW 02-18 01:06
PROVIDERS: ADMIT Nurse Practitioner Family; ATTEND Internal Medicine
DX: R07.89 Other chest pain (principal); I25.10 Atherosclerotic heart disease of native coronary artery without angina pectoris; I50.41 Acute combined systolic (congestive) and diastolic (congestive) heart failure; D68.69 Other thrombophilia; I42.9 Cardiomyopathy, unspecified; I48.91 Unspecified atrial fibrillation; Z20.822 Contact with and (suspected) exposure to COVID-19; E03.9 Hypothyroidism, unspecified; E66.01 Morbid (severe) obesity due to excess calories; F41.9 Anxiety disorder, unspecified; E78.5 Hyperlipidemia, unspecified; I11.0 Hypertensive heart disease with heart failure; Z79.01 Long term (current) use of anticoagulants; Z88.6 Allergy status to analgesic agent; Z88.0 Allergy status to penicillin; Z82.49 Family history of ischemic heart disease and other diseases of the circulatory system; Z86.711 Personal history of pulmonary embolism; Z85.3 Personal history of malignant neoplasm of breast; Z86.718 Personal history of other venous thrombosis and embolism; Z90.710 Acquired absence of both cervix and uterus; Z91.11 Patient's noncompliance with dietary regimen; Z90.49 Acquired absence of other specified parts of digestive tract; Z98.51 Tubal ligation status; Z87.440 Personal history of urinary (tract) infections; Z68.42 Body mass index [BMI] 45.0-49.9, adult
CPT/HCPCS: 36415; 70450; 71045; 71275; 80053; 83880; 84443; 84484; 85025; 93306; G0378

== ENCOUNTER 2022-04-04 14:35 | Emergency (ER) | payer MEDICAID ==
[~2022-04-04] VITALS: Ht 162.6 cm; Wt 122.5 kg
[~2022-04-04 14:35] MED LIST changes: -ATOR20TA PO; +CARV6.2551 PO; +DAPA1TAB4 PO; -ESOM40CA39 PO; +FURO1TAB31 PO; +FURO1TAB33 PO; +ISOS60TA24 PO; +NITR0.4S29 SL; +PANT40TA2 PO; +POTA-167 PO; +RIVA20TA PO; +SIMV-8 PO; +SPIR25TA8 PO; -TRAM50TA2 PO
[2022-04-04 15:15] LABS: Basophils # (auto) 0 10 ^3/uL (0-0.2); Basophils % (auto) 0.5 % (0.0-2.0); Eosinophils # (auto) 0.2 10 ^3/uL (0-0.8); Eosinophils % (auto) 2.7 % (0.0-7.0); Hematocrit 42.4 % (36.0-46.0); Hemoglobin 14.2 g/dL (12.2-16.2); Lymphocytes # (auto) 1.5 10 ^3/uL (0.4-5.4); Lymphocytes % (auto) 22.8 % (10.0-50.0); Mean Corpuscular Hemoglobin 32.6 pg (28.0-32.0); Mean Corpuscular Hgb Conc. 33.4 g/dL (32.0-36.0); Mean Corpuscular Volume 97.7 fL (80.0-100.0); Monocytes # (auto) 0.4 10 ^3/uL (0-1.3); Monocytes % (auto) 6.4 % (0.0-12.0); Neutrophils # (auto) 4.4 10 ^3/uL (1.6-8.6); Neutrophils % (auto) 67.6 % (37.0-80.0); Nucleated Red Blood Cells % 0.2 %; Red Blood Cells 4.35 10^6/uL (4.0-5.20); Red Cell Distribution Width 14.6 % (11.8-14.3); White Blood Cell 6.6 10^3/uL (4.4-10.8)
[2022-04-04 15:30] LABS: BUN/Creatinine Ratio 12.8; Potassium 4.4 mmol/L (3.5-5.1)
[2022-04-04 15:33] LABS: Bilirubin, Total 0.6 mg/dL (0.2-1.0); Total Protein 7.7 g/dL (6.4-8.2)
[2022-04-04] MEDS ORDERED: ONDANSETRON HCL 4 MG/2 ML VIAL IV ONE (18:30)
[2022-04-04 20:00] VITALS: BP 97/68
== END 2022-04-04 20:31 | disposition home or self-care (01) ==
LOC: ER 14:35
DX: R07.89 Other chest pain (principal); Z20.822 Contact with and (suspected) exposure to COVID-19
CPT/HCPCS: 36415; 71045; 80053; 84484; 85025; 87426; 93005; 96374; 99285; J2405